=== PATIENT | female | born 1940 | race Hispanic/Latino ===

== ENCOUNTER 2016-08-16 17:53 | Emergency (ER) | payer MEDICARE ==
[2016-08-16] MEDS ORDERED: BENADRYL PO ONE ×2 (18:33→18:39)
[2016-08-16] MEDS ORDERED: DECADRON IM ONE (20:12)
--- NOTE | 2016-08-16 20:18 | Emergency Department Report ---
ED Rash HPI - HPI Chief Complaint: Skin Rash Stated Complaint: POSS POISON MEE Duration: 2 Days Location: Head, Neck, Chest Suspected Cause: Plant Rash Symptoms: Yes Itching, Yes Peeling, Yes Blistering, No Facial Swelling, No Tongue/Oral Swelling, No Breathing Difficulties, No Choking Sensation, No Wheezing/Dyspnea, No Fever, No Lightheaded, No Malaise, No Myalgias Severity: mild Other History: 75 year old female presents to ED with rash, pruritis x2days. patient states she was outside gardening and after coming in from outside she noticed rash and itchiness. patient states she has had poison mee multiple times in past and she feels this is the same. patient is stable, neurologically intact and in no acute distress. patient was given benadryl in triage but has not taken due to having to drive home after discharge. patient denies SOB, labored breathing, difficulty breathing. ED Review of Systems ROS: Stated complaint: POSS POISON MEE Other details as noted in HPI Constitutional: denies: chills, fever Eyes: denies: eye pain, eye discharge, vision change ENT: denies: ear pain, throat pain Respiratory: denies: cough, shortness of breath, wheezing Cardiovascular: denies: chest pain, palpitations Endocrine: no symptoms reported Gastrointestinal: denies: abdominal pain, nausea, diarrhea Genitourinary: denies: urgency, dysuria, discharge Musculoskeletal: denies: back pain, joint swelling, arthralgia Skin: rash (erythema and hives present consistent with poison mee), pruritus. denies: lesions Neurological: denies: headache, weakness, paresthesias Psychiatric: denies: anxiety, depression Hematological/Lymphatic: denies: easy bleeding, easy bruising ED Past Medical Hx - Past Medical History Previous Medical History?: Yes - Surgical History Past Surgical History?: No - Social History Smoking Status: Never Smoker - Medications Home Medications: Home Medications Medication Instructions Recorded Confirmed Last Taken Type Pramoxine HCl/Calamine [Calamine 177 ml TP QAM #1 lotion 08/16/16 Unknown Rx Medicated Lotion] methylPREDNISolone [Medrol Dose 4 mg PO QAM #1 tab.ds.pk 08/16/16 Unknown Rx Nirmal] Rash Exam - Exam General: Vital signs noted. No distress. Alert and acting appropriately. HEENT: No Periorbital Edema, No Conjuctival Injection, No Chemosis, No Perioral Edema, No Tongue Edema, No Uvular Edema, No Compromised Airway, No Drooling Lungs: Yes Good Air Exchange, No Wheezes, No Ronchi, No Stridor, No Cough, No Labored Respirations, No Retractions, No Use of Accessory Muscles, No Other Abnormal Lung Sounds Heart: Yes Regular, No Murmur Skin: Yes Maculopapular Rash, Yes Weeping (mild weeping/oozing), Yes Erythema, No Urticarial Rash, No Morbilliform rash, No Bulla(e), No Excoriations, No Tenderness, No Edema, No Encrustations Other: Positive: Abdomen Normal, Neurologic Normal, Musculoskeletal Normal ED Course Vital Signs 08/16/16 18:31 Temperature 98 F Pulse Rate 85 Respiratory 18 Rate Blood Pressure 181/98 O2 Sat by Pulse 100 Oximetry ED Medical Decision Making - Medical Decision Making 75 year old female presents to ED with rash and pruritis consistent with poison mee. patient was given IM steroids during ED visit. patient will be given RX for oral steroids and is to continue oral benadryl at home for allergy symptoms. patient is aware to return to ED if rash worsens or she begins to have difficulty breathing. Critical care attestation.: If time is entered above; I have spent that time in minutes in the direct care of this critically ill patient, excluding procedure time. ED Disposition Clinical Impression: Contact dermatitis due to poison mee Disposition: DISCHARGED TO HOME OR SELFCARE Is pt being admited?: No Does the pt Need Aspirin: No Condition: Stable Instructions: Poison Mee (ED) Additional Instructions: Please continue to take benadryl Q6H as needed for itching and allergy symptoms Prescriptions: methylPREDNISolone [Medrol Dose Nirmal] 4 mg PO QAM #1 tab.ds.pk Pramoxine HCl/Calamine [Calamine Medicated Lotion] 177 ml TP QAM #1 lotion Referrals: PRIMARY CARE, [Primary Care Provider] - 3-5 Days Forms: Work/School Release Form(ED)
[2016-08-16 21:03] VITALS: BP 162/84
== END 2016-08-16 21:01 | disposition home or self-care (01) ==
LOC: ED 17:53
DX: L23.7 Allergic contact dermatitis due to plants, except food (principal)
CPT/HCPCS: 96372; 99282; J1100